=== PATIENT | female | born 1980 | race Caucasian/White ===

== ENCOUNTER 2022-09-13 10:57 | Emergency (ER) | payer OTHER ==
[2022-09-13 11:03] VITALS: BP 123/75; RESP 20; TEMP 98.4; BMI 26.6
[2022-09-13] MEDS ORDERED: IBUPROFEN 400 MG TABLET (FP) PO ONE ×2 (12:08→12:11)
[2022-09-13 12:40] VITALS: PULSE 85
== END 2022-09-13 12:46 | disposition home or self-care (01) ==
LOC: JERFT 10:57
DX: S63.635A Sprain of interphalangeal joint of left ring finger, initial encounter (principal); Y04.8XXA Assault by other bodily force, initial encounter
CPT/HCPCS: 99283-25